=== PATIENT | female | born 1990 | race Caucasian/White ===

== ENCOUNTER 2021-03-13 19:08 | Emergency (ER) | payer MEDICAID ==
[~2021-03-13] VITALS: Ht 149.9 cm; Wt 50.0 kg
[2021-03-13] MEDS ORDERED: HYDROCODONE/ACETAMINOPHEN 5/325MG TABLET PO STA (22:39)
[2021-03-14 00:23] LABS: CLARITY URINE TURBID (CLEAR); COLOR URINE YELLOW (YELLOW); KETONES URINE NEGATIVE (NEGATIVE); LEUKOCYTE ESTERASE URINE 2+ (NEGATIVE); NITRITE URINE NEGATIVE (NEGATIVE); OCCULT BLOOD URINE NEGATIVE (NEGATIVE); PH URINE 7.5 (4.5-8.0); PROTEIN URINE NEGATIVE (NEGATIVE); SPECIFIC GRAVITY URINE 1.025 (1.005-1.030)
[2021-03-14 00:58] LABS: BASOPHILS % 0.6 % (0.0-2.0); EOSINOPHILS % 2.1 % (0.0-5.0); HEMATOCRIT. 33.8 % (36.0-48.0); HEMOGLOBIN. 11.4 g/dL (12.0-16.0); LYMPHOCYTES % 20.7 % (20.0-50.0); MEAN CORPUSCULAR HEMOGLOBIN 30.2 pg (28.0-32.0); MEAN CORPUSCULAR VOLUME 89.6 fL (81.0-99.0); MEAN PLATELET VOLUME 10.7 fl (7.4-10.4); MONOCYTES % 8.9 % (2.0-8.0); NEUTROPHILS % 67.7 % (40.0-76.0); PLATELET 202 x1000/uL (130-400); RED BLOOD CELL COUNT 3.77 mill/uL (4.2-5.4); RED CELL DISTRIBUTION WIDTH 13.6 % (11.6-14.6)
[2021-03-14 01:00] LABS: CHLORIDE 110 mEq/L (98-107)
[2021-03-14] MEDS ORDERED: IBUP-2028 MT (01:34)
[2021-03-14 01:45] VITALS: BP 113/71
== END 2021-03-14 01:52 | disposition home or self-care (01) ==
LOC: ER 19:08
DX: N83.202 Unspecified ovarian cyst, left side (principal); D64.9 Anemia, unspecified
CPT/HCPCS: 36415; 76705; 76830; 76856; 80053; 81003; 81025; 85025; 99285

== ENCOUNTER 2022-03-14 08:42 | Observation (INO) | payer MEDICAID, MEDICARE ==
[~2022-03-14] VITALS: Ht 149.9 cm; Wt 53.1 kg
[~2022-03-14 08:42] MED LIST: IBUP-2028 MT
== END 2022-03-14 12:15 | disposition home or self-care (01) ==
LOC: 8 EST LDRP 08:42
PROVIDERS: ADMIT Obstetrics & Gynecology; ATTEND Obstetrics & Gynecology
DX: O26.893 Other specified pregnancy related conditions, third trimester (principal); R10.30 Lower abdominal pain, unspecified; O62.9 Abnormality of forces of labor, unspecified; Z3A.37 37 weeks gestation of pregnancy
CPT/HCPCS: 76805; 76818; G0378; 99281

== ENCOUNTER 2023-01-10 20:10 | Emergency (ER) | payer MEDICARE ==
[~2023-01-10] VITALS: Ht 149.9 cm; Wt 57.3 kg
[2023-01-10 20:29] VITALS: BP 117/57; O2SAT 100
[2023-01-10 20:56] LABS: CLARITY URINE TURBID (CLEAR); COLOR URINE YELLOW (YELLOW); GLUCOSE URINE NEGATIVE (NEGATIVE); KETONES URINE NEGATIVE (NEGATIVE); LEUKOCYTE ESTERASE URINE 3+ (NEGATIVE); NITRITE URINE POSITIVE (NEGATIVE); OCCULT BLOOD URINE 3+ (NEGATIVE); PH URINE 5.5 (4.5-8.0); PROTEIN URINE 3+ (NEGATIVE); SPECIFIC GRAVITY URINE 1.014 (1.005-1.030); UROBILINOGEN URINE 0.2 E.U./dL (0.2-1.0)
[2023-01-10 21:19] LABS: BACTERIA URINE 3+; SQUAMOUS EPITHELIAL CELL URINE 1+ /lpf (RARE/1+)
[2023-01-10 21:20] LABS: RBC URINE 15-25 /hpf (0-2); WBC URINE TNTC /hpf (0-2)
[2023-01-10] MEDS ORDERED: CEPH500T MT (21:59)
[2023-01-10] MEDS ORDERED: CEFTRIAXONE SODIUM 1 G/VIAL IM NR (22:00)
[2023-01-10 22:21] VITALS: PULSE 99; RESP 12; TEMP 98
== END 2023-01-10 22:23 | disposition home or self-care (01) ==
LOC: ER 22:19
DX: N39.0 Urinary tract infection, site not specified (principal); J45.909 Unspecified asthma, uncomplicated
CPT/HCPCS: 81003; 81025; 87086; 87186; 87077; 96372; 99283; J0696; Z7610